=== PATIENT | female | born 1965 | race Caucasian/White ===

== ENCOUNTER 2017-12-02 08:22 | Emergency (ER) | payer OTHER ==
[~2017-12-02] VITALS: Ht 162.6 cm; Wt 78.0 kg
[2017-12-02 08:27] VITALS: BP_SYST 158
--- NOTE | 2017-12-02 08:33 | NUR ---
Patient to ER bed 8 to gown for evaluation. Side rails up. Report given to Donnell SHER.
--- NOTE | 2017-12-02 08:39 | NUR ---
Pt complains of having vaginal bleed since this morning. Pt states bleeding is continuous and using pads does not help. Pt denies pain, N/V or fever. Pt is AAO x 4 and ambulatory. No other injuries/complaints per patient or noted.
[2017-12-02 09:02] LABS: BASOPHILS # (AUTO) 0.1 K/uL (0.0-0.2); BASOPHILS % (AUTO) 0.7 % (0.0-2.0); EOSINOPHILS # (AUTO) 0.3 K/uL (0.0-0.4); EOSINOPHILS % (AUTO) 2.4 % (0.0-4.0); HEMATOCRIT 34.3 % (36-48); LYMPHOCYTES # (AUTO) 1.8 K/uL (1.0-5.5); LYMPHOCYTES % (AUTO) 15.8 % (20.5-51.5); MEAN CORPUSCULAR HEMOGLOBIN 25 pg (27-31); MEAN CORPUSCULAR HGB CONC 32 % (32-36); MEAN CORPUSCULAR VOLUME 76 fL (79.0-98.0); MONOCYTES # (AUTO) 0.7 K/uL (0.0-1.0); MONOCYTES % (AUTO) 5.9 % (1.7-9.3); NEUTROPHILS # (AUTO) 8.3 K/uL (1.8-7.7); NEUTROPHILS % (AUTO) 75.2 % (40.0-70.0); PLATELET COUNT (AUTO) 280 K/uL (130-430); RED BLOOD CELL COUNT(AUTO) 4.49 MIL/uL (4.2-6.2); RED CELL DISTRIBUTION WIDTH 17.4 % (9.0-15.0); WHITE BLOOD COUNT (AUTO) 11.2 K/uL (4.8-10.8)
[2017-12-02 09:29] LABS: CALCIUM 8.8 mg/dL (8.4-11.0); CREATININE 0.51 mg/dL (0.55-1.30); POTASSIUM 3.9 mmol/L (3.5-5.1)
[2017-12-02 09:37] LABS: PROTHROMBIN TIME 9.8 SECS (9.5-12.5)
[2017-12-02 09:40] LABS: ALBUMIN 3.6 g/dL (3.4-4.8); TOTAL BILIRUBIN 0.2 mg/dL (0.0-1.0)
--- NOTE | 2017-12-02 10:11 | NUR ---
ER Dr. Martino at bedside examining patient.
--- NOTE | 2017-12-02 10:36 | NUR ---
Medication was given, pt tolerated well. No adverse reaction, will continue to monitor.
--- NOTE | 2017-12-02 13:07 | NUR ---
Patient given written and verbal discharge instructions and verbalizes understanding. ER MD discussed with patient the results and treatment provided. Patient in stable condition. ID arm band removed. Rx of Naprosyn, provera, ferrous sulfate given. Patient educated on pain management and to follow up with PMD. Pain Scale 0/10. Opportunity for questions provided and answered. Medication side effect fact sheet provided.
[2017-12-02 13:09] VITALS: BP_SYST 133
[2017-12-02 13:29] LABS: TOTAL IRON BIND. CAPACITY 375 ug/dL (250-450)
== END 2017-12-02 13:09 | disposition home or self-care (01) ==
LOC: SED 08:25
DX: N93.8 Other specified abnormal uterine and vaginal bleeding (principal); D25.9 Leiomyoma of uterus, unspecified; E11.9 Type 2 diabetes mellitus without complications
CPT/HCPCS: 36415; 76830-TC; 76857; 80053; 83540-TC; 83550-TC; 84702-TC; 85025; 85610-TC; 99285